=== PATIENT | female | born 1980 | race Caucasian/White ===

== ENCOUNTER 2016-12-05 05:07 | Inpatient (IN) | payer OTHER ==
[2016-12-05] MEDS ORDERED: Bicitra 30 ML UDCUP PO SCH (05:14)
[2016-12-05] MEDS ORDERED: Promethazine HCl 25 MG/ML VIAL IM PRN ×2 (05:14→08:28)
[2016-12-05] MEDS ORDERED: Lactated Ringer's 1,000 ML IV SCH (05:14)
[2016-12-05] MEDS ORDERED: Ondansetron HCl/PF 4 MG/2 ML Vial IVP PRN ×4 (05:14→11:04)
[2016-12-05 05:50] VITALS: BMI 37.1
[2016-12-05 06:34] LABS: Mean Platelet Volume 12.2 fL (7.4-10.4); Red Blood Cell (RBC) Count 4.28 mill/uL (4.20-5.40); White Blood Cell (WBC) Count 9.2 thou/uL (4.8-10.8)
[2016-12-05] MEDS ORDERED: Fentanyl 100 MCG/2 ML VIAL ONE (07:14)
[2016-12-05] MEDS ORDERED: Oxytocin 10 UNITS/ML VIAL ONE (07:15)
[2016-12-05] MEDS ORDERED: ePHEDrine/0.9% NaCl/PF SYRINGE 50 mg/10 ml ONE (07:15)
[2016-12-05] MEDS ORDERED: Ketorolac Tromethamine 30 MG/ML VIAL ONE (07:15)
[2016-12-05] MEDS ORDERED: PHENYLEPHRINE-NS 100 MCG/ML 10 ML SYRINGE ONE (07:15)
[2016-12-05] MEDS ORDERED: Ondansetron HCl/PF 4 MG/2 ML Vial ONE (07:15)
[2016-12-05] MEDS ORDERED: Dexamethasone 4 mg/ml Vial ONE (07:15)
[2016-12-05] MEDS ORDERED: Naloxone HCl 0.4 mg/ml Vial IVP PRN ×2 (08:28)
[2016-12-05] MEDS ORDERED: HYDROmorphone 2 MG/ML VIAL SLOW IVP PRN (08:28)
[2016-12-05] MEDS ORDERED: Promethazine HCl 25 MG SUPP PR PRN (08:28)
[2016-12-05] MEDS ORDERED: Meperidine HCl/PF 25 MG/ML VIAL SLOW IVP PRN (08:28)
[2016-12-05] MEDS ORDERED: Eucerin (Mineral Oil/Petrolatum,White) 30 gm Jar TOP PRN (08:28)
[2016-12-05] MEDS ORDERED: Naloxone HCl 0.4 mg/ml Vial IV PRN (08:28)
[2016-12-05] MEDS ORDERED: Communication Order-Pharmacy FS SCH (08:30)
[2016-12-05] MEDS ORDERED: Ketorolac Tromethamine 30 MG/ML VIAL IVP SCH (08:30)
[2016-12-05] MEDS ORDERED: Phytonadione Neonatal 1 MG/0.5 ML AMP ONE (08:48)
[2016-12-05] MEDS ORDERED: Erythromycin Base 0.5% Oint 1 GM TUBE ONE (08:48)
--- NOTE | 2016-12-05 09:23 | OP ---
DATE OF PROCEDURE: 12/05/2016 PREOPERATIVE DIAGNOSES: Term intrauterine with previous section with adult onset diabetes. POSTOPERATIVE DIAGNOSES: Term intrauterine with previous section with adult onse t diabetes, status post delivery PROCEDURE: Repeat low transverse section. SURGEON: Hayley Villela M.D. SPRIGGER: Tung Villela M.D. ANESTHESIA: Spinal anesthetic. COMPLICATIONS: None. PROCEDURE IN DETAIL: After adequate spinal anesthetic, the patient was placed in the supine positio n. A wedge was placed under her right flank. A Irwin catheter was placed and the abdomen was prepp ed and draped in the usual sterile technique. A Pfannenstiel incision was made through the old scar . Subcutaneous tissue opened with sharp dissection. Fascia opened with sharp dissection, peritoneu m opened with sharp and blunt dissection, noted that the abdomen was filled with a gravid uterus. A large Austin O retractor was placed and a low transverse incision was made on the uterus. Membrane s were ruptured. Thick meconium fluid was encountered. A viable female was delivered from v ertex presentation without difficulty. Infant breathed and cried spontaneously. was handed to care of the neonatology team. Cord blood was obtained and the placenta was delivered manually, a ppeared intact. Hysterotomy edges were grasped with ring forceps and a wet lap was used to wipe asya an the uterus. An additional ring forceps was used to dilate the cervix and this ring forcep was ta amanda external to the sterile field. The hysterotomy was closed in continuous fashion using 1 Monocry l. Hemostasis appeared adequate. There was no bleeding from the peritoneal edges. The Austin O re tractor was removed and the peritoneum was then closed in continuous fashion using 2-0 chromic. The re were no additional bleeders. The fascia was closed in continuous fashion using 0 Vicryl. Sponge and instrument counts were correct. The wound was irrigated. A few bleeders were cauterized and t he subcutaneous tissue was closed in continuous fashion using 2-0 plain. The skin was then closed u sing julián. The patient tolerated the procedure well to go to the recovery room in good condition . Noted that the baby is a viable female , weight pending. Apgars 7 at 1 minute and 9 at 5 m inutes, to go to level 1 nursery.
[2016-12-05] MEDS ORDERED: diphenhydrAMINE HCl 50 MG/ML 1 ML VIAL ONE (10:25)
[2016-12-05] MEDS: diphenhydrAMINE HCl 50 MG/ML 1 ML VIAL IVP PRN ×2 (10:28→20:35)
[2016-12-05] MEDS ORDERED: Bisacodyl 10 MG SUPP PR PRN (11:04)
[2016-12-05] MEDS ORDERED: diphenhydrAMINE HCl 25 MG CAP PO PRN (11:04)
[2016-12-05] MEDS ORDERED: Acetaminophen 325 MG TAB PO PRN (11:04)
[2016-12-05] MEDS ORDERED: HYDROcodone/Acetaminophen 5/325 mg Tablet PO PRN (11:04)
[2016-12-05] MEDS ORDERED: Docusate (Surfak) 240 MG CAP PO SCH ×2 (11:04→11:30)
[2016-12-05] MEDS ORDERED: Prenatal Vitamin 1 TAB PO SCH ×2 (11:04→11:30)
[2016-12-05] MEDS ORDERED: Lanolin Ointment 7 GM TUBE TOP PRN (11:04)
[2016-12-05] MEDS ORDERED: Acetaminophen/Codeine 30-300mg Tablet PO PRN (11:04)
[2016-12-05] MEDS ORDERED: metFORMIN HCl XR 500 MG TAB PO SCH ×2 (11:04→11:30)
[2016-12-05] MEDS ORDERED: Ferrous Sulfate 325 MG TAB PO SCH ×2 (11:04→11:30)
[2016-12-05] MEDS ORDERED: Hydrocerin (Eucerin) Cream 120 gm Jar TOP PRN (13:37)
[2016-12-05] MEDS: Ibuprofen 800 MG TAB PO SCH ×2 (16:28→23:28)
[2016-12-05] MEDS: Ketorolac Tromethamine 30 MG/ML VIAL IVP PRN ×2 (16:28→22:23)
[2016-12-05] MEDS: Lactated Ringer's 1,000 ML IV SCH (16:35)
[2016-12-05] MEDS: Docusate (Surfak) 240 MG CAP PO SCH (20:36)
[2016-12-05] MEDS: Ferrous Sulfate 325 MG TAB PO SCH (23:27)
[2016-12-05] MEDS: metFORMIN HCl XR 500 MG TAB PO SCH (23:28)
[2016-12-06] MEDS: Lactated Ringer's 1,000 ML IV SCH (01:07)
[2016-12-06] MEDS: Ketorolac Tromethamine 30 MG/ML VIAL IVP PRN (04:52)
[2016-12-06 05:07] LABS: Hematocrit 32.4 % (36.0-47.0); Mean Platelet Volume 11.9 fL (7.4-10.4); Red Blood Cell (RBC) Count 3.55 mill/uL (4.20-5.40); White Blood Cell (WBC) Count 10.2 thou/uL (4.8-10.8)
[2016-12-06] MEDS: Docusate (Surfak) 240 MG CAP PO SCH ×2 (08:39→20:30)
[2016-12-06] MEDS: Prenatal Vitamin 1 TAB PO SCH (08:39)
[2016-12-06] MEDS: metFORMIN HCl XR 500 MG TAB PO SCH ×2 (08:39→18:07)
[2016-12-06] MEDS: Ibuprofen 800 MG TAB PO SCH ×2 (08:41→13:39)
[2016-12-06] MEDS: Ferrous Sulfate 325 MG TAB PO SCH ×2 (08:41→20:37)
[2016-12-06] MEDS: HYDROcodone/Acetaminophen 5/325 mg Tablet PO PRN (20:30)
[2016-12-06] MEDS: Simethicone Chewable 80 MG TAB PO PRN (20:30)
[2016-12-07] MEDS: HYDROcodone/Acetaminophen 5/325 mg Tablet PO PRN ×6 (00:37→23:35)
[2016-12-07] MEDS: Ibuprofen 800 MG TAB PO SCH ×4 (00:37→21:47)
[2016-12-07] MEDS: Docusate (Surfak) 240 MG CAP PO SCH ×2 (08:05→21:48)
[2016-12-07] MEDS: Prenatal Vitamin 1 TAB PO SCH (08:05)
[2016-12-07] MEDS: metFORMIN HCl XR 500 MG TAB PO SCH ×2 (08:06→18:27)
[2016-12-07] MEDS: Ferrous Sulfate 325 MG TAB PO SCH ×2 (10:36→21:47)
[2016-12-07] MEDS: Simethicone Chewable 80 MG TAB PO PRN ×2 (12:11→19:57)
[2016-12-08] MEDS: HYDROcodone/Acetaminophen 5/325 mg Tablet PO PRN ×3 (03:45→12:46)
[2016-12-08] MEDS: Ibuprofen 800 MG TAB PO SCH ×2 (05:43→12:07)
[2016-12-08] MEDS: Prenatal Vitamin 1 TAB PO SCH (08:25)
[2016-12-08] MEDS: Simethicone Chewable 80 MG TAB PO PRN (08:25)
[2016-12-08] MEDS: metFORMIN HCl XR 500 MG TAB PO SCH (08:26)
[2016-12-08] MEDS: Docusate (Surfak) 240 MG CAP PO SCH (08:26)
[2016-12-08 09:58] VITALS: BP 140/84
[2016-12-08] MEDS: Ferrous Sulfate 325 MG TAB PO SCH (10:00)
[2016-12-08 14:42] VITALS: TEMP 98
== END 2016-12-08 14:40 | disposition home or self-care (01) | DRG 765 ==
LOC: L&D 05:07 → 3SW 11:04
PROVIDERS: ADMIT Family Medicine; ATTEND Family Medicine
PROC: 10D00Z1 Extraction of Products of Conception, Low, Open Approach (ICD-10-PCS; principal; 2016-12-05)
DX: O77.0 Labor and delivery complicated by meconium in amniotic fluid (principal); O24.12 Pre-existing type 2 diabetes mellitus, in childbirth; E11.9 Type 2 diabetes mellitus without complications; Z3A.39 39 weeks gestation of pregnancy; Z37.0 Single live birth; Z79.4 Long term (current) use of insulin
CPT/HCPCS: 36415; 36416; 85027; 86780; 86850; 86900; 86901; 87340; J1100; J1200; J1885; J2210; J2274; J2405; J2590; J3010; J3430

== ENCOUNTER 2017-05-12 09:38 | Emergency (ER) | payer OTHER, SELFPAY ==
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
== END 2017-05-12 12:11 | disposition home or self-care (01) ==
LOC: ERS 09:38
DX: S16.1XXA Strain of muscle, fascia and tendon at neck level, initial encounter (principal); E11.9 Type 2 diabetes mellitus without complications; Z79.899 Other long term (current) drug therapy; Z79.84 Long term (current) use of oral hypoglycemic drugs; V43.52XA Car driver injured in collision with other type car in traffic accident, initial encounter
CPT/HCPCS: 72125

== ENCOUNTER 2019-08-18 11:41 | Emergency (ER) | payer OTHER ==
--- NOTE | 2019-08-18 12:06 | RAD ---
RADIOGRAPH CHEST 1 VIEW: DATE: 08/18/2019 HISTORY: 39-year-old female with chest pain FINDINGS: The visualized lung harp are clear. The cardiomediastinal silhouette and hilar shadows are normal. The lateral costophrenic angles are sharp. The osseous structures appear normal. There is no pneumothorax. IMPRESSION: Negative.
[2019-08-18 13:18] LABS: #Basophils 0.1 thou/uL (0.0-0.2); #Eosinphils 0.2 thou/uL (0.0-0.7); #Lymphocytes 2.4 thou/uL (1.20-3.40); #Monocytes 0.4 thou/uL (0.11-0.59); %Basophils 1.3 % (0.0-1.0); %Eosinophils 2.9 % (0.0-10.0); %Neutrophils 56.8 % (42.0-75.0); Hemoglobin 12.4 g/dL (12.0-16.0); Mean Corpuscular HGB CONC 34.8 g/dL (32.0-36.0); Mean Corpuscular Hemoglobin 28.6 pg (27.0-31.0); Mean Corpuscular Volume 82.3 fL (78.0-98.0); Platelet Count 187 thou/uL (130-400); RBC Distribution Width 14.2 % (11.5-14.5); Red Blood Cell (RBC) Count 4.35 mill/uL (4.20-5.40)
[2019-08-18 13:41] LABS: ALT (SGPT) 81 U/L (8-55); AST (SGOT) 118 U/L (5-34); Albumin 4.5 g/dL (3.5-5.0); Alkaline Phosphatase 115 U/L (40-110); Anion Gap 15 mmol/L (10-20); BUN (Urea Nitrogen) 10 mg/dL (7.0-18.7); Bilirubin, Total 0.6 mg/dL (0.2-1.2); Calc. Creatinine Clearance 0 mL/min (70-130); Calcium 9.4 mg/dL (7.8-10.44); Carbon Dioxide 21 mmol/L (22-29); Chloride 104 mmol/L (98-107); Estimated GFR-MDRD 84; Globulin 3.6 g/dL (2.4-3.5); Glucose 104 mg/dL (70-105); Protein, Total 8.1 g/dL (6.0-8.3); Sodium 136 mmol/L (136-145)
[2019-08-18 16:32] LABS: Troponin I Less than 0.010 ng/mL (< 0.028)
== END 2019-08-18 16:53 | disposition home or self-care (01) ==
LOC: ERS 11:41
DX: R07.9 Chest pain, unspecified (principal); Z20.828 Contact with and (suspected) exposure to other viral communicable diseases; E11.9 Type 2 diabetes mellitus without complications; K21.9 Gastro-esophageal reflux disease without esophagitis; Z79.84 Long term (current) use of oral hypoglycemic drugs
CPT/HCPCS: 36415; 36416; 71045; 80053; 84484; 85025; 87635; 93005; U0003

== ENCOUNTER 2022-06-22 09:36 | Outpatient (CLI) | payer BC | END 2022-06-22 09:37 | disposition home or self-care (01) | LOC: BICMAMMO 09:36 | PROVIDERS: ATTEND Family Medicine | DX: Z12.31 Encounter for screening mammogram for malignant neoplasm of breast (principal) | CPT/HCPCS: 77063; 77067 ==

== ENCOUNTER 2024-02-25 07:39 | Outpatient (CLI) | payer BC | END 2024-02-25 07:40 | disposition home or self-care (01) | LOC: BICMAMMO 07:39 | PROVIDERS: ATTEND Family Medicine | DX: N63.14 Unspecified lump in the right breast, lower inner quadrant (principal) | CPT/HCPCS: G0279 ==